=== PATIENT | female | born 1955 | race Hispanic/Latino ===

== ENCOUNTER 2023-05-20 17:13 | Emergency (ER) | payer OTHER ==
[2023-05-20] MEDS ORDERED: ONDANSETRON 4 MG/2 ML VIAL ONE (17:35)
[2023-05-20] MEDS ORDERED: MECLIZINE HCL 12.5 MG TAB ONE (17:35)
[2023-05-20] MEDS ORDERED: NA CHLORIDE 0.9% 500 ML ONE (17:35)
[2023-05-20] MEDS ORDERED: FAMOTIDINE 20 MG/2 ML VIAL IV ONE (17:36)
[2023-05-20 17:56] LABS: Absolute Lymphocytes (CBC) 1.2 K/uL (0.7-4.9); Lymphocytes % 21.1 % (15.3-44.8); MPV 7.9 fL (7.6-11.3); RBC Red Blood Cell Count 4.49 M/uL (3.86-4.86)
[2023-05-20 17:57] LABS: Protime INR 0.98
--- NOTE | 2023-05-20 18:11 | RAD REPORT ---
EXAM DESCRIPTION: CT - Head Brain Wo Cont - 05/20/2023 6:03 pm CLINICAL HISTORY: Dizziness COMPARISON: none TECHNIQUE: Computed axial tomography of the head was obtained. IV contrast was not requested. All CT scans are performed using dose optimization technique as appropriate and may include automated exposure control or mA/KV adjustment according to patient size. FINDINGS: An intracranial bleed is not seen The ventricles are normal in caliber No significant hypodense areas within the brain visualized No extra-axial fluid collection is noted. Fluid within the sinuses/ mastoids is not seen IMPRESSION: No acute intracranial abnormality is seen If patient's symptoms persist MRI of the brain would be recommended
[2023-05-20 18:22] LABS: ALT/SGPT 21 U/L (13-56); AST/SGOT 15 U/L (15-37); Albumin 3.7 g/dL (3.4-5.0); Alkaline Phosphatase 52 U/L (45-117); BUN Blood Urea Nitrogen 23 mg/dL (7-18); Bicarbonate 22 mEq/L (21-32); Bilirubin Total 0.3 mg/dL (0.2-1.0); Glomerular Filtration Rate 83 ml/min (=/>90); Glucose Level 121 mg/dL (74-106); Magnesium 2.1 mg/dL (1.6-2.4); Potassium 3.4 mEq/L (3.5-5.1); Protein, Total 7.1 g/dL (6.4-8.2); Sodium Level 142 mEq/L (136-145)
[2023-05-20 18:23] LABS: Bilirubin Direct < 0.1 mg/dL (0-0.2); Bilirubin Indirect, Calculated ND mg/dL (0.2-0.8); Troponin High Sensitivity < 3.0 pg/mL (<58.9)
--- NOTE | 2023-05-20 18:37 | RAD REPORT ---
EXAM DESCRIPTION: Júnior Single View05/20/2023 6:15 pm CLINICAL HISTORY: Vomiting, diarrhea and dizziness COMPARISON: 2017 FINDINGS: The lungs appear clear of acute infiltrate. The heart is normal size IMPRESSION: No acute abnormalities displayed
[2023-05-20 18:46] LABS: Specific Gravity 1.011 (1.005-1.030); Urine Bacteria None Seen /HPF (<20); Urine Bilirubin NEGATIVE (Negative); Urine Blood Negative (Negative); Urine Clarity Clear (Clear); Urine Color Light-Yellow (Yellow); Urine Glucose NEGATIVE (Negative); Urine Mucus Slight /HPF (None Seen); Urine Protein NEGATIVE (Negative); Urine RBC <5 /HPF (None Seen); Urine Urobilinogen Normal (Normal); Urine pH 5.5 (5.0-7.0)
--- NOTE | 2023-05-20 19:24 | RAD REPORT ---
EXAM DESCRIPTION: Hedy Angio05/20/2023 7:11 pm CLINICAL HISTORY: Syncope/dizziness/headache/vomiting COMPARISON: None TECHNIQUE: 100 cc Isovue 370 was administered intravenously. 3D MIP reconstruction performed All CT scans are performed using dose optimization technique as appropriate and may include automated exposure control or mA/KV adjustment according to patient size. FINDINGS: Mild plaque within the common carotid, internal carotid and external carotid arteries nicholas aterally. Left vertebral artery dominant. Right vertebral artery hypoplastic and terminates into the PICA No dissection IMPRESSION: Mild plaque within the arteries NASCET criteria used. Mild 0-49% stenosis Moderate 50-69% stenosis Severe 70-99% stenosis
--- NOTE | 2023-05-20 19:27 | RAD REPORT ---
EXAM DESCRIPTION: CTHead angio05/20/2023 7:11 pm CLINICAL HISTORY: Syncope/dizziness/vomiting/ COMPARISON: None TECHNIQUE: 100 cc Isovue [address] angiogram of the head was obtained. 3D MIPS reconstruction performed. All CT scans are performed using dose optimization technique as appropriate and may include automated exposure control or mA/KV adjustment according to patient size. FINDINGS: origin posterior cerebral arteries Anterior cerebral, middle cerebral, posterior cerebral, basilar distal internal carotid arteries are unremarkable No large vessel occlusion An aneurysm is not seen A significant stenosis is not noted. IMPRESSION: No significant abnormality displayed
--- NOTE | 2023-05-20 19:56 | EDPHYS ---
Physician Documentation [facility] Name: Italia Baldwin Age: 68 yrs Sex: Female : 1955 Arrival Date: 05/20/2023 Time: 17:13 Bed 15 Private MD: ED Physician Khari Myrick HPI: 05/20 17:30 This 68 yrs old Female presents to ER via Unassigned with complaints of cp Dizziness, Nausea/Vomiting. 17:30 The patient presents with dizziness, generalized weakness, feeling off balance, sense cp of spinning. Onset: The symptoms/episode began/occurred today, after awakening this afternoon. Context: occurred at home. Associated signs and symptoms: Pertinent positives: nausea, vomiting, Pertinent negatives: abdominal pain, chest pain. Severity of symptoms: in the emergency department the symptoms have improved mildly. Patient's baseline: Neuro: alert and fully oriented, Motor: no deficits, Ambulation: walks without assistance, Speech: normal. Historical: - Allergies: 17:25 NKDA; db - PMHx: 17:25 Irritable bowel syndrome; db - Immunization history:: Adult Immunizations unknown, Client reports receiving the 2nd dose of the Covid vaccine. - Social history:: Smoking status: Patient denies any tobacco usage or history of. ROS: 17:35 Constitutional: Negative for fever, poor PO intake. cp 17:35 Eyes: Negative for injury, pain, redness, and discharge. cp 17:35 ENT: Negative for drainage from ear(s), ear pain, sore throat, difficulty swallowing, difficulty handling secretions. 17:35 Cardiovascular: Negative for chest pain, palpitations. 17:35 Respiratory: Negative for cough, shortness of breath, wheezing. 17:35 Abdomen/GI: Positive for nausea and vomiting, Negative for abdominal pain, hematemesis. 17:35 : Negative for urinary symptoms. 17:35 Neuro: Positive for dizziness, headache, weakness, Negative for altered mental status, syncope. 17:35 All other systems are negative. Exam: 17:40 ECG was reviewed by the Attending Physician. cp 17:40 Constitutional: The patient appears in no acute distress, alert, awake, cp non-diaphoretic, non-toxic, well developed, well nourished. 17:40 Head/Face: Normocephalic, atraumatic. cp 17:40 Eyes: Periorbital structures: appear normal, Pupils: equal, round, and reactive to light and accomodation, Extraocular movements: intact throughout, Conjunctiva: normal, no exudate, no injection, Sclera: no appreciated abnormality, Lids and lashes: appear normal, bilaterally. 17:40 ENT: External ear(s): are unremarkable, Ear canal(s): are normal, clear, TM's: dullness, bilaterally, Nose: is normal, Mouth: Lips: moist, Oral mucosa: pink and intact, moist, Posterior pharynx: is normal, airway is patent, no erythema, no exudate. 17:40 Neck: ROM/movement: is normal, is supple, without pain, no range of motions limitations. 17:40 Chest/axilla: Inspection: normal, Palpation: is normal, no crepitus, no tenderness. 17:40 Cardiovascular: Rate: normal, Rhythm: regular. 17:40 Respiratory: the patient does not display signs of respiratory distress, Respirations: normal, no use of accessory muscles, no retractions, labored breathing, is not present, Breath sounds: are clear throughout, no decreased breath sounds, no stridor, no wheezing. 17:40 Abdomen/GI: Inspection: abdomen appears normal, Palpation: abdomen is soft and non-tender, in all quadrants. 17:40 Neuro: Orientation: to person, place \T\ time. Mentation: is normal, Cerebellar function: Romberg testing is negative, normal finger to nose testing, Motor: moves all fours, strength is normal, Sensation: is normal. Vital Signs: 17:15 BP 146 / 90; Pulse 76; Resp 14; Temp 97.9(O); Pulse Ox 99% on R/A; Weight 63.5 kg; db Height 5 ft. 4 in. ; 18:25 BP 147 / 85; Pulse 76; Resp 18 S; Pulse Ox 99% on R/A; kc6 19:26 BP 134 / 59; Pulse 63; Resp 19 S; Pulse Ox 97% on R/A; as6 17:15 Body Mass Index 24.03 (63.50 kg, 162.56 cm) db NIH Stroke Scale Scores: 17:26 NIHSS Score: 0 db MDM: 17:21 Patient medically screened. cp 18:55 ED course: Patient reports dizziness markedly improved, ambulated to restroom w/o cp problem. 19:53 Data reviewed: vital signs, nurses notes. Counseling: I had a detailed discussion with kb the patient and/or guardian regarding: the historical points, exam findings, and any diagnostic results supporting the discharge/admit diagnosis, lab results, radiology results, the need for outpatient follow up, a family practitioner, to return to the emergency department if symptoms worsen or persist or if there are any questions or concerns that arise at home. 05/20 17:23 Order name: Basic Metabolic Panel; Complete Time: 18:42 cp 06/20 18:42 Interpretation: Normal except: K 3.4; CL 111; GLUC 121; BUN 23; GFR 83. cp / 17:23 Order name: CBC with Diff; Complete Time: 18:42 cp 05/20 17:23 Order name: LFT's; Complete Time: 18:42 cp / 17:23 Order name: Magnesium; Complete Time: 18:42 cp 05/20 17:23 Order name: PT-INR; Complete Time: 18:42 cp 05/20 17:23 Order name: Troponin HS; Complete Time: 18:42 cp 20 17:23 Order name: Urinalysis W/Microscopic; Complete Time: 19:02 cp /20 17:23 Order name: XRAY Chest (1 view); Complete Time: 18:42 cp /20 17:23 Order name: CT Head Brain wo Cont; Complete Time: 18:42 cp /20 18:42 Interpretation: Report reviewed. cp 05/20 18:49 Order name: CT Head Angio; Complete Time: 19:52 cp 20 18:49 Order name: CT Neck Angio; Complete Time: 19:52 cp /20 17:23 Order name: EKG; Complete Time: 17:24 cp 20 17:23 Order name: Cardiac monitoring; Complete Time: 17:24 cp /20 17:23 Order name: EKG - Nurse/Tech; Complete Time: 17:45 cp /20 17:23 Order name: IV Saline Lock; Complete Time: 17:24 cp /20 17:23 Order name: Labs collected and sent; Complete Time: 17:45 cp /20 17:23 Order name: O2 Per Protocol; Complete Time: 17:24 cp 20 17:23 Order name: O2 Sat Monitoring; Complete Time: 17:24 cp EC:40 Rate is 68 beats/min. Rhythm is regular. NJ interval is normal. QRS interval is normal. cp QT interval is normal. T waves are Inverted in lead aVR. Interpreted by me. Reviewed by me. Administered Medications: 17:45 Drug: Meclizine PO 25 mg Route: PO; kc6 18:26 Follow up: Response: No adverse reaction kc6 17:46 Drug: Ondansetron IVP 4 mg Route: IVP; Site: left antecubital; kc6 18:26 Follow up: Response: No adverse reaction; Nausea is decreased; Vomiting decreased kc6 17:46 Drug: Famotidine IVP 20 mg Route: IVP; Site: left antecubital; kc6 18:26 Follow up: Response: No adverse reaction kc6 17:46 Drug: NS 0.9% IV 500 ml Route: IV; Rate: 125 ml/hr; Site: left antecubital; kc6 20:11 Follow up: Response: No adverse reaction; IV Status: Completed infusion; IV Intake: as6 125ml Disposition Summary: 05/20/23 19:56 Discharge Ordered Location: Home kb Condition: Stable kb Diagnosis - Dizziness and giddiness kb Followup: kb - With: Emergency Department - When: As needed - Reason: Worsening of condition Followup: kb - With: Private Physician - When: 2 - 3 days - Reason: Recheck today's complaints, Continuance of care, Re-evaluation by your physician Discharge Instructions: - Discharge Summary Sheet kb - Vertigo, Ittz-ar-Lzcm kb - Dizziness, Dybx-da-Vbbb kb Forms: - Medication Reconciliation Form kb - Thank You Letter kb - Antibiotic Education kb - Prescription Opioid Use kb Prescriptions: - Meclizine 25 mg Oral Tablet - take 1 tablet by ORAL route every 8 hours As needed; 30 tablet; Refills: 0, kb Product Selection Permitted - Zofran 4 mg Oral Tablet - take 1 tablet by ORAL route every 6 hours As needed; 12 tablet; Refills: 0, kb Product Selection Permitted NIH Stroke Scale - NIH Stroke Score Date: 05/20/2023 Time: 17:26 Total Score = 0 10. Dysarthria (speech clarity - read or repeat words) - 0(Normal) 11. Extinction and Inattention (visual/tactile/auditory/spatial/personal) - 0(No abnormality) 1a. Level of Consciousness (LOC) - 0(Alert) 1b. Level of Consciousness (LOC) (Month \T\ Age) - 0(Both) 1c. LOC Commands (Open \T\ Closes Eyes/Boring Mill Operator For Metal) - 0(Both) 2. Best Gaze (Lateral Gaze Paresis) - 0(Normal) 3. Visual Field Loss - 0(No visual loss) 4. Facial Palsy - 0(Normal) 5a. Left Arm: Motor (10-second hold) - 0(No drift) 5b. Right Arm: Motor (10-second hold) - 0(No drift) 6a. Left Leg: Motor (5-second hold - always test supine) - 0(No drift) 6b. Right Leg: Motor (5-second hold - always test supine) - 0(No drift) 7. Limb Ataxia (finger/nose \T\ heel/clinton - test with eyes open) - 0(Absent) 8. Sensory Loss (pinprick arms/legs/face) - 0(Normal) 9. Best Language: Aphasia (description/naming/reading) - 0(No aphasia) Initials: db Signatures: Dispatcher [employer] EDMS Grace Culver, REJI-C FEED RESEARCH AIDE-Ckb Khari Emmanuel PA PA cp Campbell, Kaitlyn RN RN kc6 Teresita Abreu RN RN db Joselito Hough RN as6 Corrections: (The following items were deleted from the chart) 17:42 17:23 This 68 yrs old Female presents to ER via Unassigned with cp complaints of Dizziness, Nausea/Vomiting. cp
--- NOTE | 2023-05-20 19:56 | ER ---
Nurse's Notes [facility] Name: Italia Baldwin Age: 68 yrs Sex: Female : 1955 Arrival Date: 05/20/2023 Time: 17:13 Bed 15 Private MD: Diagnosis: Dizziness and giddiness Presentation: 05/20 17:15 Chief complaint: EMS states: patient from home. Diziness, N/V and diarrhea. with db headache. Family thought patient was having a stroke. Coronavirus screen: Vaccine status: Patient reports receiving the 2nd dose of the covid vaccine. Client denies travel out of the [place] in the last 14 days. At this time, the client does not indicate any symptoms associated with coronavirus-19. Ebola Screen: Patient negative for fever greater than or equal to 101.5 degrees Fahrenheit, and additional compatible Ebola Virus Disease symptoms Patient denies exposure to infectious person. Patient denies travel to an Ebola-affected area in the 21 days before illness onset. No symptoms or risks identified at this time. Initial Sepsis Screen: Does the patient meet any 2 criteria? No. Patient's initial sepsis screen is negative. Does the patient have a suspected source of infection? No. Patient's initial sepsis screen is negative. Risk Assessment: Do you want to hurt yourself or someone else? Patient reports no desire to harm self or others. Onset of symptoms was May 20, 2023. Care prior to arrival: Medication(s) given: Phenergan, 12.5 mg, IV initiated. 18 GA, in the left antecubital area, Glucose check: 96. 17:15 Method Of Arrival: EMS: [facility] db 17:15 Acuity: WILBERT 2 db Triage Assessment: 17:25 General: Appears in no apparent distress. comfortable, Behavior is calm, cooperative. db Pain: Complains of pain in head. GI: Reports diarrhea, nausea, vomiting. Historical: - Allergies: 17:25 NKDA; db - PMHx: 17:25 Irritable bowel syndrome; db - Immunization history:: Adult Immunizations unknown, Client reports receiving the 2nd dose of the Covid vaccine. - Social history:: Smoking status: Patient denies any tobacco usage or history of. Screenin:26 [facility] ED Fall Risk Assessment (Adult) History of falling in the last 3 months, db including since admission No falls in past 3 months (0 pts) Confusion or Disorientation No (0 pts) Intoxicated or Sedated No (0 pts) Impaired Gait No (0 pts) Mobility Assist Device Used No (0 pt) Altered Elimination No (0 pt) Score/Fall Risk Level 0 - 2 = Low Risk Oriented to surroundings, Maintained a safe environment. Abuse screen: Denies threats or abuse. Denies injuries from another. Nutritional screening: No deficits noted. Tuberculosis screening: No symptoms or risk factors identified. Assessment: 17:26 Reassessment: see triage for initial assessment. Neuro: Level of Consciousness is db awake, alert, obeys commands, Oriented to person, place, time, situation, Moves all extremities. Speech is normal, Facial symmetry appears normal, Pupils are PERRLA. GI: Abdomen is flat, non-distended, Reports diarrhea, nausea, vomiting. 18:25 Reassessment: Patient appears in no apparent distress at this time. No changes from kc6 previously documented assessment. Patient and/or family updated on plan of care and expected duration. Pain level reassessed. Patient is alert, oriented x 3, equal unlabored respirations, skin warm/dry/pink. 19:27 Reassessment: Patient appears in no apparent distress at this time. Patient and/or as6 family updated on plan of care and expected duration. Pain level reassessed. Patient is alert, oriented x 3, equal unlabored respirations, skin warm/dry/pink. Vital Signs: 17:15 BP 146 / 90; Pulse 76; Resp 14; Temp 97.9(O); Pulse Ox 99% on R/A; Weight 63.5 kg; db Height 5 ft. 4 in. ; 18:25 BP 147 / 85; Pulse 76; Resp 18 S; Pulse Ox 99% on R/A; kc6 19:26 BP 134 / 59; Pulse 63; Resp 19 S; Pulse Ox 97% on R/A; as6 17:15 Body Mass Index 24.03 (63.50 kg, 162.56 cm) db NIH Stroke Scale Scores: 17:26 NIHSS Score: 0 db ED Course: 17:15 Patient arrived in ED. db 17:17 Khari Emmanuel PA is PHCP. cp 17:17 Khari Myrick MD is Attending Physician. cp 17:17 Elizabeth Rosenbaum, RN is Primary Nurse. kc6 17:23 Placed in gown. Bed in low position. Call light in reach. Side rails up X 1. Client mb9 placed on continuous cardiac and pulse oximetry monitoring. NIBP monitoring applied. shelter monitor on. 17:23 Maintain EMS IV. Dressing intact. Good blood return noted. Site clean \T\ dry. Gauge \T\ tegan 6 site: 18G LAC. 17:25 Triage completed. db 17:25 Arm band placed on Patient placed in an exam room. db 18:04 CT Head Brain wo Cont In Process Unspecified. EDMS 18:17 XRAY Chest (1 view) In Process Unspecified. EDMS 19:13 CT Head Angio In Process Unspecified. EDMS 19:13 CT Neck Angio In Process Unspecified. EDMS 20:11 No provider procedures requiring assistance completed. IV discontinued, intact, as6 bleeding controlled, No redness/swelling at site. Pressure dressing applied. Administered Medications: 17:45 Drug: Meclizine PO 25 mg Route: PO; kc6 18:26 Follow up: Response: No adverse reaction kc6 17:46 Drug: Ondansetron IVP 4 mg Route: IVP; Site: left antecubital; kc6 18:26 Follow up: Response: No adverse reaction; Nausea is decreased; Vomiting decreased kc6 17:46 Drug: Famotidine IVP 20 mg Route: IVP; Site: left antecubital; kc6 18:26 Follow up: Response: No adverse reaction kc6 17:46 Drug: NS 0.9% IV 500 ml Route: IV; Rate: 125 ml/hr; Site: left antecubital; kc6 20:11 Follow up: Response: No adverse reaction; IV Status: Completed infusion; IV Intake: as6 125ml Medication: 19:26 VIS not applicable for this client. as6 Intake: 20:11 IV: 125ml; Total: 125ml. as6 Outcome: 19:56 Discharge ordered by . kb 20:11 Discharged to home ambulatory, with family. as6 20:11 Condition: stable 20:11 Discharge instructions given to patient, Instructed on discharge instructions, follow up and referral plans. medication usage, Demonstrated understanding of instructions, follow-up care, medications, Prescriptions given X 2. 20:12 Patient left the ED. as6 NIH Stroke Scale - NIH Stroke Score Date: 05/20/2023 Time: 17:26 Total Score = 0 10. Dysarthria (speech clarity - read or repeat words) - 0(Normal) 11. Extinction and Inattention (visual/tactile/auditory/spatial/personal) - 0(No abnormality) 1a. Level of Consciousness (LOC) - 0(Alert) 1b. Level of Consciousness (LOC) (Month \T\ Age) - 0(Both) 1c. LOC Commands (Open \T\ Closes Eyes/Special Education Educational Assistant) - 0(Both) 2. Best Gaze (Lateral Gaze Paresis) - 0(Normal) 3. Visual Field Loss - 0(No visual loss) 4. Facial Palsy - 0(Normal) 5a. Left Arm: Motor (10-second hold) - 0(No drift) 5b. Right Arm: Motor (10-second hold) - 0(No drift) 6a. Left Leg: Motor (5-second hold - always test supine) - 0(No drift) 6b. Right Leg: Motor (5-second hold - always test supine) - 0(No drift) 7. Limb Ataxia (finger/nose \T\ heel/clinton - test with eyes open) - 0(Absent) 8. Sensory Loss (pinprick arms/legs/face) - 0(Normal) 9. Best Language: Aphasia (description/naming/reading) - 0(No aphasia) Initials: db Signatures: Dispatcher [employer] Grace Bey, SOFT MUD MOLDER-C SOFT MUD MOLDER-Ckb Khari Emmanuel PA PA cp Slawson, Ashby, RN RN as6 Elizabeth Rosenbaum RN RN kc6 Teresita Abreu RN RN db Breneman, Mary Beth, RN RN mb9
[2023-05-20 20:16] VITALS: TEMP 97.9
[2023-05-20 20:19] VITALS: BP 134/59; O2SAT 97
--- NOTE | 2023-05-21 19:09 | EKG ---
Test Date: 2023-05-20 Test Time: 17:33:21 Bond Manager: FÉLIX MEASUREMENT RESULTS: Intervals: Rate: 68 [place]: 154 QRSD: 86 QT: 384 QTc: 408 [place]: P: 68 [place]: 154 QRS: -34 T: 62 INTERPRETIVE STATEMENTS: Normal sinus rhythm Left axis deviation Abnormal ECG Compared to ECG 10/22/2016 16:27:11 Myocardial infarct finding no longer present Electronically Signed On 05-21-23 19:08:39 CDT by Edgardo London
== END 2023-05-20 20:12 | disposition home or self-care (01) ==
LOC: ER 17:13
DX: R42 Dizziness and giddiness (principal); R11.2 Nausea with vomiting, unspecified; R51.9 Headache, unspecified; R53.1 Weakness
CPT/HCPCS: 85025; 81001; 80048; 36415; 83735; 85610; 80076; 84484; 70450; 70496; 70498; 71045; Q9967; J8597; J2405; J7040; 93005

== ENCOUNTER 2024-06-04 12:36 | Emergency (ER) | payer OTHER ==
--- NOTE | 2024-06-04 13:21 | RAD REPORT ---
EXAM DESCRIPTION: CT - Head Brain Wo Cont - 06/04/2024 1:06 pm CLINICAL HISTORY: Head injury status post fall COMPARISON: 2022 TECHNIQUE: Computed axial tomography of the head was obtained. IV contrast was not requested. All CT scans are performed using dose optimization technique as appropriate and may include automated exposure control or mA/KV adjustment according to patient size. FINDINGS: An intracranial bleed is not seen The ventricles are normal in caliber No extra-axial fluid collection is noted. No significant hypodensity within the brain noted Fluid within the sinuses/ mastoids is not seen. IMPRESSION: No acute intracranial abnormality is seen If patient's symptoms persist MRI of the brain would be recommended
--- NOTE | 2024-06-04 13:30 | ER ---
Nurse's Notes [facility] Name: Italia Baldwin Age: 69 yrs Sex: Female : 1955 Arrival Date: 06/04/2024 Time: 12:36 Bed 11 Private MD: Diagnosis: Unspecified injury of head, initial encounter Presentation: 06/04 12:48 Chief complaint: Patient states: Tripped last night while trying to watch fireworks. ll1 Hit head, no LOC. Her kids wanted her to get checked out. Coronavirus screen: Client denies travel out of the [place] in the last 14 days. At this time, the client does not indicate any symptoms associated with coronavirus-19. Ebola Screen: Patient denies travel to an Ebola-affected area in the 21 days before illness onset. Initial Sepsis Screen: Does the patient meet any 2 criteria? No. Patient's initial sepsis screen is negative. Does the patient have a suspected source of infection? No. Patient's initial sepsis screen is negative. Risk Assessment: Do you want to hurt yourself or someone else? Patient reports no desire to harm self or others. Onset of symptoms was June 03, 2024. 12:48 Method Of Arrival: Ambulatory ll1 12:48 Acuity: WILBERT 3 ll1 Triage Assessment: 12:48 General: Appears in no apparent distress. Behavior is calm, cooperative, appropriate ll1 for age. Pain: Complains of pain in head Quality of pain is described as aching. Neuro: Reports headache. Historical: - Allergies: 12:44 NKDA; ll1 - PMHx: 12:44 Irritable bowel syndrome; ll1 - Immunization history:: Adult Immunizations up to date. - Infectious Disease History:: Denies. - Social history:: Smoking status: Patient denies any tobacco usage or history of. - Family history:: not pertinent. - Hospitalizations: : No recent hospitalization is reported. Screenin:38 [facility] ED Fall Risk Assessment (Adult) History of falling in the last 3 months, as6 including since admission Yes- single mechanical fall (1 pt) Confusion or Disorientation No (0 pts) Intoxicated or Sedated No (0 pts) Impaired Gait No (0 pts) Mobility Assist Device Used No (0 pt) Altered Elimination No (0 pt) Score/Fall Risk Level 0 - 2 = Low Risk Oriented to surroundings, Maintained a safe environment, Educated pt \T\ family on fall prevention, incl call for assistance when getting out of bed, Assessed \T\ reinforced patient's understanding of fall precautions. Abuse screen: Denies threats or abuse. Denies injuries from another. Nutritional screening: No deficits noted. Tuberculosis screening: No symptoms or risk factors identified. Assessment: 13:38 Reassessment: Patient appears in no apparent distress at this time. Patient and/or as6 family updated on plan of care and expected duration. Pain level reassessed. Patient is alert, oriented x 3, equal unlabored respirations, skin warm/dry/pink. Vital Signs: 12:48 BP 116 / 72; Pulse 95; Resp 16; Temp 98.2; Pulse Ox 97% ; Weight 63.5 kg; Height 5 ft. ll1 3 in. ; Pain 8/10; 13:38 BP 133 / 71; Pulse 63; Resp 17 S; Pulse Ox 98% on R/A; as6 12:48 Body Mass Index 24.80 (63.50 kg, 160.02 cm) ll1 12:48 Pain Scale: Adult ll1 ED Course: 12:40 Patient arrived in ED. mg5 12:44 Arm band placed on Patient placed in an exam room, on a stretcher. ll1 12:49 Triage completed. ll1 12:50 Dickson Bell MD is Attending Physician. rn 13:01 Joselito Hough, KAMLA is Primary Nurse. as6 13:08 CT Head Brain wo Cont In Process Unspecified. EDMS 13:38 Bed in low position. Call light in reach. Provided Education on: follow up. as6 13:38 No provider procedures requiring assistance completed. Patient did not have IV access as6 during this emergency room visit. Administered Medications: No medications were administered Medication: 13:38 VIS not applicable for this client. as6 Outcome: 13:29 Discharge ordered by . rn 13:38 Discharged to home ambulatory, as6 13:38 Condition: stable 13:38 Discharge instructions given to patient, Instructed on discharge instructions, follow up and referral plans. Demonstrated understanding of instructions, follow-up care, 13:39 Patient left the ED. as6 Signatures: Dispatcher [employer] EDMS Dickson Bell MD MD rn Lewis, Lynsay, RN RN 1 Joselito Hough RN RN as6 Bita Butt mg5
--- NOTE | 2024-06-04 13:30 | EDPHYS ---
Physician Documentation [facility] Name: Italia Baldwin Age: 69 yrs Sex: Female : 1955 Arrival Date: 06/04/2024 Time: 12:36 Bed 11 Private MD: ED Physician Dickson Bell HPI: 06/04 13:15 This 69 yrs old Female presents to ER via Ambulatory with complaints of Fall rn Injury, Head Injury Without LOC-Adult. 13:15 Details of fall: The patient fell from an upright position, while walking. Onset: The rn symptoms/episode began/occurred last night. Associated injuries: The patient sustained injury to the head. Severity of symptoms: At their worst the symptoms were mild, in the emergency department the symptoms are unchanged. The patient has not experienced similar symptoms in the past. Patient reports tripped last night over a application integrator stone, struck left top of head on concrete. No LOC. No vomiting. No seizure activity. Remembers all events. Reports feels sleepy and family made her come in to get checked. No blood thinners. No other injuries.. Historical: - Allergies: 12:44 NKDA; ll1 - PMHx: 12:44 Irritable bowel syndrome; ll1 - Immunization history:: Adult Immunizations up to date. - Infectious Disease History:: Denies. - Social history:: Smoking status: Patient denies any tobacco usage or history of. - Family history:: not pertinent. - Hospitalizations: : No recent hospitalization is reported. ROS: 13:15 Constitutional: Negative for fever, chills, and weight loss, Neck: Negative for injury, rn pain, and swelling, Cardiovascular: Negative for chest pain, palpitations, and edema, Respiratory: Negative for shortness of breath, cough, wheezing, and pleuritic chest pain, Abdomen/GI: Negative for abdominal pain, nausea, vomiting, diarrhea, and constipation, MS/Extremity: Negative for injury and deformity, Skin: Negative for injury, rash, and discoloration, Neuro: Positive for headache, negative for focal weakness or numbness. Exam: 13:15 Constitutional: This is a well developed, well nourished patient who is awake, alert, rn and in no acute distress. Head/Face: Normocephalic, atraumatic. Eyes: Pupils equal round and reactive to light, extra-ocular motions intact. Neck: No midline cervical tenderness Cardiovascular: Regular rate and rhythm. No pulse deficits. Respiratory: No increased work of breathing, no retractions or nasal flaring. MS/ Extremity: Pulses equal, no cyanosis. Neurovascular intact. Full, normal range of motion. Equal circumference. Neuro: Awake and alert, GCS 15, oriented to person, place, time, and situation. Cranial nerves II-XII grossly intact. Motor strength 5/5 in all extremities. Sensory grossly intact. Cerebellar exam normal. Vital Signs: 12:48 BP 116 / 72; Pulse 95; Resp 16; Temp 98.2; Pulse Ox 97% ; Weight 63.5 kg; Height 5 ft. ll1 3 in. ; Pain 8/10; 13:38 BP 133 / 71; Pulse 63; Resp 17 S; Pulse Ox 98% on R/A; as6 12:48 Body Mass Index 24.80 (63.50 kg, 160.02 cm) ll1 12:48 Pain Scale: Adult ll1 MDM: 12:50 Patient medically screened. rn 13:29 Differential diagnosis: closed head injury, contusion, fracture. Data reviewed: vital rn signs, nurses notes, radiologic studies, CT scan, and as a result, I will discharge patient. Counseling: I had a detailed discussion with the patient and/or guardian regarding the historical points, exam findings, and any diagnostic results supporting the discharge/admit diagnosis, radiology results, the need for outpatient follow up, to return to the emergency department if symptoms worsen or persist or if there are any questions or concerns that arise at home. Special discussion: Based on the patient's history, exam and DX evaluation, there is no indication for emergent intervention or inpatient TX. It is understood by the patient/guardian that if the SXs persist or worsen they need to return immediately for re-evaluation. I discussed with the patient/guardian in detail that at this point there is no indication for admission to the hospital. It is understood, however, that if the symptoms persist or worsen the patient needs to return immediately for re-evaluation. 13:29 ED course: I have personally reviewed all of the results, including but not limited to rn blood tests deemed necessary to safely discharge this patient at this time. All results given to and printed out for patient. I personally went over all the results with the patient and answered all questions. Patient will follow-up with PCP and or specialist as discussed. Return precautions given and understood.. 06/04 12:57 Order name: CT Head Brain wo Cont; Complete Time: 13:29 rn Administered Medications: No medications were administered Disposition Summary: 06/04/24 13:29 Discharge Ordered Notes: Location: Home rn Problem: new rn Symptoms: have improved rn Condition: Stable rn Diagnosis - Unspecified injury of head, initial encounter rn Followup: rn - With: Private Physician - When: As needed - Reason: Recheck today's complaints, Re-evaluation by your physician Discharge Instructions: - Discharge Summary Sheet rn - Head Injury, Adult rn Forms: - Medication Reconciliation Form rn - Antibiotic corn popper - Prescription Opioid Use rn - Patient Portal Instructions rn - Leadership Thank You Letter rn Signatures: Dispatcher [employer] Dickson Dyer MD MD rn Lewis, Lynsay, RN RN ll1
[2024-06-04 13:48] VITALS: BP 133/71; TEMP 98.2; O2SAT 98
== END 2024-06-04 13:39 | disposition home or self-care (01) ==
LOC: ER 12:36
DX: S09.90XA Unspecified injury of head, initial encounter (principal); W18.09XA Striking against other object with subsequent fall, initial encounter
CPT/HCPCS: 70450; 99282

== ENCOUNTER 2024-08-17 11:39 | Emergency (ER) | payer OTHER ==
[2024-08-17 12:26] LABS: Absolute Eosinophils 0.2 K/uL (0-0.5); Absolute Lymphocytes (CBC) 1.4 K/uL (0.7-4.9); Absolute Monocytes 0.5 K/uL (0.1-1.3); Absolute Neutrophil 3.6 K/uL (1.8-8.0); Basophils % 0.8 % (0-1.3); Eosinophils % 3.1 % (0-4.4); Hematocrit 34.8 % (36.0-45.0); Hemoglobin 11.4 g/dL (12.0-15.0); Lymphocytes % 24.8 % (15.3-44.8); MCH 25.8 pg (27.0-35.0); MCHC 32.8 g/dL (32.0-36.0); MCV 78.5 fL (80-100); MPV 7.4 fL (7.6-11.3); Monocytes % 8.2 % (3.3-12.3); Neutrophils % 63.1 % (41.7-73.7); Platelets 340 thou/uL (152-406); RBC Red Blood Cell Count 4.44 M/uL (3.86-4.86); Red Cell Distribution Width 16.5 % (12.1-15.2)
[2024-08-17 12:39] LABS: ALT/SGPT 29 U/L (13-56); AST/SGOT 13 U/L (15-37); Albumin 3.9 g/dL (3.4-5.0); Albumin/Globulin Ratio 1.1 (1.1-1.8); Alkaline Phosphatase 54 U/L (45-117); Anion Gap 8.7 mEq/L (5.0-15.0); BUN Blood Urea Nitrogen 20 mg/dL (7-18); Bicarbonate 26 mEq/L (21-32); Bilirubin Total 0.4 mg/dL (0.2-1.0); Globulin 3.4 g/dL (2.3-3.5); Glomerular Filtration Rate 78 ml/min (=/>90); Glucose Level 103 mg/dL (74-106); Potassium 3.7 mEq/L (3.5-5.1); Protein, Total 7.3 g/dL (6.4-8.2); Sodium Level 141 mEq/L (136-145)
--- NOTE | 2024-08-17 12:43 | RAD REPORT ---
EXAMINATION: ONE VIEW CHEST XR CLINICAL INDICATION: Female, 69 years old. . [facility] MAIN ams Bed Name: 4 TECHNIQUE: Frontal chest projection is submitted. Examination is limited by patient positioning and t echnique. COMPARISON: 05/20/2023 FINDINGS: The lungs are well inflated and clear. The heart is upper limit of normal in size. Cervical hardware plate noted. IMPRESSION: No acute intrathoracic abnormalities.
--- NOTE | 2024-08-17 12:43 | RAD REPORT ---
EXAM: CT brain without contrast HISTORY: Headache, confusion COMPARISON: 06/04/2024 TECHNIQUE: Multiple contiguous axial images were obtained and a CT of the brain without contrast. Sag ittal and coronal reformats were performed. FINDINGS:No evidence of hydrocephalus, intracranial hemorrhage, or extra-axial fluid collection. The brain is normal in morphology. The calvarium is intact. The visualized paranasal sinuses and mastoid air cells are essentially clear . IMPRESSION: No evidence of acute intracranial abnormality.
[2024-08-17 12:45] LABS: Bilirubin Direct < 0.2 mg/dL (0-0.2); Bilirubin Indirect, Calculated 0.2 mg/dL (0.2-0.8); Troponin High Sensitivity < 3.0 pg/mL (<58.9)
--- NOTE | 2024-08-17 12:46 | RAD REPORT ---
EXAMINATION: CTA HEAD CLINICAL INDICATION: Female, 69 years old. Headache, drowsiness TECHNIQUE: Axial CT images were obtained through the head after intravenous contrast utilizing angiog raphic protocol with 3D post-processing (maximum intensity projection images, volume rendered images and/or shaded surface rendered images). One or more of the following dose reduction technique s were used: Automated exposure control, adjustment of the mA and/or kV according to patient size, and/or iterative reconstruction. Unless otherwise specified, incidental findings do not require dedic ated imaging follow-up. COMPARISON: 05/20/2023 FINDINGS: ICA: The petrous, cavernous, and supraclinoid segments of the bilateral internal carotid arteries are normal. The ophthalmic artery origins are visualized and normal. The posterior communicating arteries are patent. DWIGHT: Anterior cerebral arteries are normal bilaterally. The anterior communicating artery is patent. MCA: Middle cerebral arteries are normal bilaterally. UTILITY BAGGER: Posterior cerebral arteries are normal bilaterally. Vertebrobasilar: Left vertebral artery is dominant. The right vertebral artery may terminate in PICA, normal variant. Basilar artery is diminutive but patent. 3D images confirm these findings. IMPRESSION: No significant flow abnormality is identified.
[2024-08-17 13:04] LABS: Specific Gravity 1.016 (1.005-1.030); Sqamous Epithelial <5 /HPF (None Seen); Urine Bacteria None Seen /HPF (<20); Urine Bilirubin NEGATIVE (Negative); Urine Blood Negative (Negative); Urine Clarity Clear (Clear); Urine Color Light-Yellow (Yellow); Urine Culture Reflex Order NOT NEEDED; Urine Glucose NEGATIVE (Negative); Urine Ketones NEGATIVE (Negative); Urine Micro Reflex YN NO BILL MICROSCOPIC; Urine Mucus Slight /HPF (None Seen); Urine Nitrite NEGATIVE (Negative); Urine Protein NEGATIVE (Negative); Urine RBC None Seen /HPF (None Seen); Urine Urobilinogen Normal (Normal); Urine WBC <5 /HPF (<5)
--- NOTE | 2024-08-17 13:10 | RAD REPORT ---
EXAMINATION: CTA NECK CLINICAL INDICATION: Female, 69 years old. [facility] MAIN ams, neck pain Bed Name: 4 TECHNIQUE: Axial CT images were obtained from the aortic arch to the skull base after intravenous con trast utilizing angiographic protocol. Multiplanar reformats, as well as 3D post-processing (maximum intensity projection images, volume rendered images and/or shaded surface rendered images) w ere generated and reviewed. One or more of the following dose reduction techniques were used: Automated exposure control, adjustment of the mA and/or kV according to patient size, and/or iterativ e reconstruction. Unless otherwise specified, incidental findings do not require dedicated imaging follow-up. COMPARISON: 05/20/2023. FINDINGS: AORTA: The imaged aortic arch is normal. Normal three-vessel configuration of the arch. CCA: The common carotid arteries are patent and normal in caliber. ICA/ECA: Bilateral internal and external carotid arteries are patent. There is no significant interna l carotid artery stenosis. VERTEBRAL: The cervical vertebral arteries are patent to the skull base. Vertebral arteries are codom inant. SOFT TISSUE: No significant neck soft tissue abnormalities. The visualized lung apices are clear. Ant erior cervical fusion hardware is present spanning C4-C7. 3D images confirm these findings. IMPRESSION: No significant flow abnormality of the neck vessels is identified. NASCET criteria used to quantify ICA stenosis, with the following grading scheme: Mild 0-49% stenosis Moderate 50-69% stenosis Severe 70-99% stenosis Reference: [place] Symptomatic Carotid Endarterectomy Trial Collaborators; Jin MEZA, Tavia DW, Anna RB, et al. Beneficial effect of carotid endarterectomy in symptomatic patients with high-grade carotid stenosis. N Engl J Med. 1990 15;325(7):445-53.
--- NOTE | 2024-08-17 13:44 | EDPHYS ---
Physician Documentation [facility] Name: Italia Baldwin Age: 69 yrs Sex: Female : 1955 Arrival Date: 08/17/2024 Time: 11:39 Bed 4 Private MD: ED Physician Reji Ortiz HPI: 08/17 12:18 This 69 yrs old Female presents to ER via Ambulatory with complaints of rt Headache - confusion. 12:18 Patient presents to the ED with neck pain. The patient reports having a chronic neck rt pain which she had surgery and is currently on codeine for this. She states that she gets headaches due to the neck pain. States that this is currently ongoing but is a known issue for the patient. Patient states that she last knows that she was at neurologic baseline last night. 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 Patient alex back and check in for further evaluation. She states that she feels less confused currently. Denies other acute complaints, symptoms are moderate in severity, no other aggravating alleviating factors.. Historical: - Allergies: 11:45 NKDA; rs5 - PMHx: 11:45 Irritable bowel syndrome; rs5 - PSHx: 11:45 None; rs5 - Immunization history:: Adult Immunizations up to date. - Infectious Disease History:: Denies. - Family history:: not pertinent. - Social history:: Smoking status: Patient denies any tobacco usage or history of. ROS: 12:18 Constitutional: Negative for fever, chills, and weight loss, Cardiovascular: Negative rt for chest pain, palpitations, and edema, Respiratory: Negative for shortness of breath, cough, wheezing, and pleuritic chest pain, Abdomen/GI: Negative for abdominal pain, nausea, vomiting, diarrhea, and constipation, Skin: Negative for injury, rash, and discoloration, Psych: Negative for depression, anxiety, suicide ideation, homicidal ideation, and hallucinations, 12:18 Neck: Positive for pain with movement, pain at rest, 12:18 Neuro: Positive for Confusion, headache, Exam: 12:18 Constitutional: This is a well developed, well nourished patient who is awake, alert, rt and in no acute distress. Head/Face: Normocephalic, atraumatic. Chest/axilla: Normal chest wall appearance and motion. Nontender with no deformity. No lesions are appreciated. Cardiovascular: Regular rate and rhythm with a normal S1 and S2. No gallops, murmurs, or rubs. Normal PMI, no JVD. No pulse deficits. Respiratory: Lungs have equal breath sounds bilaterally, clear to auscultation and percussion. No rales, rhonchi or wheezes noted. No increased work of breathing, no retractions or nasal flaring. Abdomen/GI: Soft, non-tender, with normal bowel sounds. No distension or tympany. No guarding or rebound. No evidence of tenderness throughout. Skin: Warm, dry with normal turgor. Normal color with no rashes, no lesions, and no evidence of cellulitis. MS/ Extremity: Pulses equal, no cyanosis. Neurovascular intact. Full, normal range of motion. 12:18 Eyes: Extraocular muscles intact, no visual field deficit. 12:18 Neuro: Cranial nerves II through XII intact, no ataxia on [id number], strength and sensation intact in upper and lower extremities, 12:48 ECG was reviewed by the Attending Physician. rt Vital Signs: 11:52 BP 168 / 96; Pulse 67; Resp 17; Temp 97.8; Pulse Ox 100% ; Weight 63.5 kg; Height 5 ft. ll1 4 in. ; Pain 8/10; 13:01 BP 160 / 91; Pulse 72; Resp 17; Pulse Ox 99% ; rs5 13:59 BP 139 / 66; Pulse 55; Resp 16; Pulse Ox 98% on R/A; cm10 11:52 Body Mass Index 24.03 (63.50 kg, 162.56 cm) ll1 11:52 Pain Scale: Adult ll1 NIH Stroke Scale Scores: 11:46 NIHSS Score: 0 rs5 MDM: 11:51 Patient medically screened. rt 13:48 Differential diagnosis: Headache, confusion, polypharmacy, tearing, vertebral rt dissection. Data reviewed: vital signs, nurses notes, lab test result(s), EKG, radiologic studies. Consideration of Admission/Observation Escalation of care including admission/observation considered. Discussed with patient that CVA, TIA cannot completely rule out. Did offer patient mission to the hospital for further evaluation. States that symptoms have resolved, she wishes to follow-up as an outpatient. She will return for worsening symptoms.. Independent interpretation of the following test(s) in the Emergency Department CT Scan: My interpretation is No intracranial hemorrhage seen on my interpretation of the CT scan images. Counseling: I had a detailed discussion with the patient and/or guardian regarding the historical points, exam findings, and any diagnostic results supporting the discharge/admit diagnosis, lab results, radiology results, the need for outpatient follow up, to return to the emergency department if symptoms worsen or persist or if there are any questions or concerns that arise at home. Response to treatment: the patient's symptoms have resolved after treatment. 08/17 12:04 Order name: Basic Metabolic Panel; Complete Time: 13:08 rt 08/17 12:04 Order name: CBC with Diff; Complete Time: 13: rt 08/17 12:04 Order name: LFT's; Complete Time: 13: rt 08/17 12:04 Order name: Magnesium; Complete Time: 13: rt 08/17 12:04 Order name: Troponin HS; Complete Time: 13: rt 08/17 12:04 Order name: UAM; Complete Time: 13: rt 08/17 12:41 Order name: CREATININE WHOLE BLOOD; Complete Time: 13:08 EDMS 08/17 12:04 Order name: XRAY Chest (1 view); Complete Time: 13: rt 08/17 12:04 Order name: CT Head Brain wo Cont; Complete Time: 13: rt 08/17 12:04 Order name: CT Neck Angio; Complete Time: 13:10 rt 08/17 12:08 Order name: Head angio; Complete Time: 13: EDMS 08/17 12:04 Order name: Cardiac monitoring; Complete Time: 12:19 rt 08/17 12:04 Order name: EKG - Nurse/Tech; Complete Time: 12:19 rt 08/17 12:04 Order name: IV Saline Lock; Complete Time: 12:19 rt 08/17 12:04 Order name: Labs collected and sent; Complete Time: 12:19 rt 08/17 12:04 Order name: O2 Per Protocol; Complete Time: 12:19 rt 08/17 12:04 Order name: O2 Sat Monitoring; Complete Time: 12:19 rt EC:48 Rate is 56 beats/min. Rhythm is regular, Sinus bradycardia with No ectopy. QRS [place] is rt Normal. OR interval is normal. QRS interval is normal. QT interval is normal. No Q waves. T waves are Normal. No ST changes noted. Administered Medications: No medications were administered Disposition Summary: 08/17/24 13:44 Discharge Ordered Notes: Location: Home rt Problem: new rt Symptoms: are resolved rt Condition: Stable rt Diagnosis - Confusion rt Followup: rt - With: Private Physician - When: 2 - 3 days - Reason: Discharge Instructions: - Discharge Summary Sheet rt - Confusion rt Forms: - Medication Reconciliation Form rt - Antibiotic Education rt - Prescription Opioid Use rt - Patient Portal Instructions rt - Leadership Thank You Letter rt NIH Stroke Scale - NIH Stroke Score Date: 08/17/2024 Time: 11:46 Total Score = 0 10. Dysarthria (speech clarity - read or repeat words) - 0(Normal) 11. Extinction and Inattention (visual/tactile/auditory/spatial/personal) - 0(No abnormality) 1a. Level of Consciousness (LOC) - 0(Alert) 1b. Level of Consciousness (LOC) (Month \T\ Age) - 0(Both) 1c. LOC Commands (Open \T\ Closes Eyes/Lower In Supervisor) - 0(Both) 2. Best Gaze (Lateral Gaze Paresis) - 0(Normal) 3. Visual Field Loss - 0(No visual loss) 4. Facial Palsy - 0(Normal) 5a. Left Arm: Motor (10-second hold) - 0(No drift) 5b. Right Arm: Motor (10-second hold) - 0(No drift) 6a. Left Leg: Motor (5-second hold - always test supine) - 0(No drift) 6b. Right Leg: Motor (5-second hold - always test supine) - 0(No drift) 7. Limb Ataxia (finger/nose \T\ heel/cl[place] - test with eyes open) - 0(Absent) 8. Sensory Loss (pinprick arms/legs/face) - 0(Normal) 9. Best Language: Aphasia (description/naming/reading) - 0(No aphasia) Initials: rs5 Signatures: Dispatcher [employer] EDMS Reji Ortiz MD MD rt Neftali Nguyen RN RN rs5 Corrections: (The following items were deleted from the chart) 12:04 12:04 BASIC METABOLIC PANEL+C.LAB.BRZ ordered. EDNY EDMS 12:04 12:04 CBC+H.LAB.BRZ ordered. EDMS EDMS 12: 12:04 HEPATIC FUNCTION+C.LAB.BRZ ordered. EDMS EDMS 12: 12:04 MAGNESIUM+C.LAB.BRZ ordered. EDMS EDMS 12: 12:04 Troponin High Sensitivity+C.LAB.BRZ ordered. EDMS EDMS 12: 12:04 Urinalysis W/Microscopic+U.LAB.BRZ ordered. EDMS EDMS 12: 12:04 Chest Single View+RAD.RAD.BRZ ordered. EDMS EDMS 12: 12:05 Head Brain Wo Cont+CT.RAD.BRZ ordered. EDMS EDMS 12: 12:05 Neck Angio+CT.RAD.BRZ ordered. EDMS EDMS
--- NOTE | 2024-08-17 13:44 | ER ---
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 Coronavirus screen: Client denies travel out of the [place] in the last 14 days. At this time, the client does not indicate any symptoms associated with coronavirus-19. Ebola Screen: Patient denies travel to an Ebola-affected area in the 21 days before illness onset. Initial Sepsis Screen: Does the patient meet any 2 criteria? No. Patient's initial sepsis screen is negative. Does the patient have a suspected source of infection? No. Patient's initial sepsis screen is negative. Risk Assessment: Do you want to hurt yourself or someone else? Patient reports no desire to harm self or others. Onset of symptoms was August 17, 2024. 11:52 Method Of Arrival: Ambulatory ll1 11:52 Acuity: WILBERT 2 ll1 Triage Assessment: 11:45 Headache History: The patient has had previous headaches and this one is similar to rs5 previous episodes. General: Appears in no apparent distress. comfortable, Behavior is calm, cooperative. Pain: Also complains of. Pain: Complains of pain in head Pain currently is 5 out of 10 on a pain scale. Quality of pain is described as aching, Pain began Is. 11:52 General: Appears uncomfortable, Behavior is calm, cooperative, appropriate for age. ll1 Pain: Denies pain. 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 Historical: - Allergies: 11:45 NKDA; rs5 - PMHx: 11:45 Irritable bowel syndrome; rs5 - PSHx: 11:45 None; rs5 - Immunization history:: Adult Immunizations up to date. - Infectious Disease History:: Denies. - Family history:: not pertinent. - Social history:: Smoking status: Patient denies any tobacco usage or history of. Screenin:45 [facility] ED Fall Risk Assessment (Adult) History of falling in the last 3 months, rs5 including since admission No falls in past 3 months (0 pts) Confusion or Disorientation No (0 pts) Intoxicated or Sedated No (0 pts) Impaired Gait No (0 pts) Mobility Assist Device Used No (0 pt) Altered Elimination No (0 pt) Score/Fall Risk Level 0 - 2 = Low Risk Oriented to surroundings, Maintained a safe environment. Abuse screen: Denies threats or abuse. Nutritional screening: No deficits noted. Tuberculosis screening: No symptoms or risk factors identified. Assessment: 11:45 General: Appears in no apparent distress. comfortable, Behavior is calm, cooperative. rs5 Pain: Denies pain. 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 Gait is steady, Speech is normal, Facial symmetry appears normal, Pupils are PERRLA, Pupil Size: 3 mm Intact. Cardiovascular: Patient's skin is warm and dry. Respiratory: Airway is patent Respiratory effort is even, unlabored, Respiratory pattern is regular, symmetrical. GI: Abdomen is round non-distended, Abd is soft and non tender X 4 quads. : No signs and/or symptoms were reported regarding the genitourinary system. EENT: No signs and/or symptoms were reported regarding the EENT system. Derm: Skin is intact, Skin is pink, warm \T\ dry. Musculoskeletal: Range of motion: intact in all extremities. 12:16 Reassessment: Patient and/or family updated on plan of care and expected duration. Pain rs5 level reassessed. Patient is alert, oriented x 3, equal unlabored respirations, skin warm/dry/pink. 13:01 Reassessment: No changes from previously documented assessment. rs5 13:50 Reassessment: No changes from previously documented assessment. rs5 Vital Signs: 11:52 BP 168 / 96; Pulse 67; Resp 17; Temp 97.8; Pulse Ox 100% ; Weight 63.5 kg; Height 5 ft. ll1 4 in. ; Pain 8/10; 13:01 BP 160 / 91; Pulse 72; Resp 17; Pulse Ox 99% ; rs5 13:59 BP 139 / 66; Pulse 55; Resp 16; Pulse Ox 98% on R/A; cm10 11:52 Body Mass Index 24.03 (63.50 kg, 162.56 cm) ll1 11:52 Pain Scale: Adult ll1 NIH Stroke Scale Scores: 11:46 NIHSS Score: 0 rs5 ED Course: 11:42 Patient arrived in ED. ra3 11:45 Patient has correct armband on for positive identification. Placed in gown. Bed in low rs5 position. Call light in reach. Side rails up X2. 11:49 Reji Ortiz MD is Attending Physician. rt 11:52 Arm band placed on Patient placed in an exam room, on a stretcher. ll1 11:53 Triage completed. ll1 12:01 No provider procedures requiring assistance completed. Inserted saline lock: 20 gauge rs5 in right forearm, using aseptic technique. Blood collected. Flushed with 10 mL NS. 12:16 Neftali Nguyen, RN is Primary Nurse. rs5 12:27 CT Head Brain wo Cont In Process Unspecified. EDMS 12:28 CT Neck Angio In Process Unspecified. EDMS 12:28 Head angio In Process Unspecified. EDMS 12:34 XRAY Chest (1 view) In Process Unspecified. EDMS 14:00 Provided Education on: Follow-up instructions. cm10 14:00 IV discontinued, intact, bleeding controlled, No redness/swelling at site. Pressure cm10 dressing applied. Administered Medications: No medications were administered Medication: 11:45 VIS not applicable for this client. rs5 Outcome: 13:44 Discharge ordered by . rt 14:00 Discharged to home ambulatory, with family, cm10 14:00 Condition: good 14:00 Discharge instructions given to patient, Instructed on discharge instructions, follow up and referral plans. Demonstrated understanding of instructions, follow-up care, 14:00 Patient left the ED. cm10 NIH Stroke Scale - NIH Stroke Score Date: 08/17/2024 Time: 11:46 Total Score = 0 10. Dysarthria (speech clarity - read or repeat words) - 0(Normal) 11. Extinction and Inattention (visual/tactile/auditory/spatial/personal) - 0(No abnormality) 1a. Level of Consciousness (LOC) - 0(Alert) 1b. Level of Consciousness (LOC) (Month \T\ Age) - 0(Both) 1c. LOC Commands (Open \T\ Closes Eyes/Presidential Helicopter Crew Chief) - 0(Both) 2. Best Gaze (Lateral Gaze Paresis) - 0(Normal) 3. Visual Field Loss - 0(No visual loss) 4. Facial Palsy - 0(Normal) 5a. Left Arm: Motor (10-second hold) - 0(No drift) 5b. Right Arm: Motor (10-second hold) - 0(No drift) 6a. Left Leg: Motor (5-second hold - always test supine) - 0(No drift) 6b. Right Leg: Motor (5-second hold - always test supine) - 0(No drift) 7. Limb Ataxia (finger/nose \T\ heel/[place] - test with eyes open) - 0(Absent) 8. Sensory Loss (pinprick arms/legs/face) - 0(Normal) 9. Best Language: Aphasia (description/naming/reading) - 0(No aphasia) Initials: rs5 Signatures: Dispatcher [employer] Italo Mclaughlin RN RN ll1 Reji Otriz MD MD rt Neftali Nguyen RN RN rs5 Jacqueline Liu RN RN cm10 Maki Renyoso ra3
[2024-08-17 14:43] VITALS: TEMP 97.8
[2024-08-17 14:46] VITALS: BP 139/66; O2SAT 98
--- NOTE | 2024-08-19 12:26 | EKG ---
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
== END 2024-08-17 14:00 | disposition home or self-care (01) ==
LOC: ER 11:39
DX: R41.0 Disorientation, unspecified (principal); R51.9 Headache, unspecified; M54.2 Cervicalgia
CPT/HCPCS: 85025; 81001; 80048; 36415; 83735; 82565; 80076; 84484; 70450; 70496; 70498; 71045; Q9967; 93005; 99284